=== PATIENT | female | born 1925 | race Caucasian/White ===

== ENCOUNTER → 2017-08-21 | Outpatient (CLI) | payer MEDICARE, BC ==
--- NOTE | 2017-08-22 13:32 | RADIOLOGY REPORT PS360 ---
PANOREX HISTORY: GINGIVITIS. Mouth pain fell disease Patient Age: 89 years: Female Ordering Physician: Bo Perez MD TECHNIQUE: [facility] COMPARISON :None FINDINGS The patient is numerous extractions. Majority the remaining upper teeth have been removed. More central upper teeth remain., Remaining superior incisors with additional radiopaque filling or covering. Occlusal films would better identify detail on of the slight irregular contour of the second from midline left upper incisor. Many of the remaining lower molars and teeth I have dental caps & fillings. The canal is seen at the remaining right inferior molar. The right & and left bicuspid right lucent and less evident and may have been removed Remaining inferior incisors, remaining superior incisors. The mandible is intact. Degenerative changes are seen at right & left condyle/TMJ. No fracture or destructive lesion. Involving the mandible or maxilla The maxillary sinuses appear clear IMPRESSION 1. Extensive dental disease with many teeth having been removed many of the remaining teeth with evidence of prominent dental work. Dental follow-up recommended to further evaluate features. (For example would note Slight irregularity occlusal margin of the second left upper incisor; Also note Lucent or absent lower bicuspids bilaterally with radiographic opaque cap,. Again dental evaluation suggested with possible occlusal films to further evaluate specific findings at teeth ) 2. The mandible otherwise intact with no fracture nor erosion or destruction 3. 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 Likely associated erosive changes at mandibular condyle
== END ==
LOC: RAD 14:34
DX: K05.10 Chronic gingivitis, plaque induced (principal)